=== PATIENT | male | born 1970 | race Caucasian/White ===

== ENCOUNTER 2021-01-19 14:22 | Emergency (ER) | payer SELFPAY ==
[2021-01-19 14:36] VITALS: BMI 28.3
[2021-01-19] MEDS ORDERED: BAMLANIVIMAB 700 MG in SODIUM CHLORIDE 250 ML IVPB ONE (14:55)
[2021-01-19] MEDS ORDERED: LORATADINE 10 MG TABLET PO ONE (16:22)
[2021-01-19] MEDS ORDERED: LORATADINE 10 MG TABLET ONE (16:30)
[2021-01-19 17:06] VITALS: TEMP 100.4
[2021-01-19] MEDS ORDERED: ACETAMINOPHEN 325 MG TABLET (FP) PO ONE (17:14)
[2021-01-19] MEDS ORDERED: ACETAMINOPHEN 325 MG TABLET (FP) ONE ×2 (17:17→18:12)
[2021-01-19 18:10] VITALS: BP 137/89; PULSE 96
== END 2021-01-19 18:31 | disposition home or self-care (01) ==
LOC: JER 14:22
PROC: 3E033GC Introduction of Other Therapeutic Substance into Peripheral Vein, Percutaneous Approach (ICD-10-PCS; principal; 2021-01-19)
DX: U07.1 COVID-19 (principal)
CPT/HCPCS: 71046-TC-FY; 99284-25; M0239; Q0239

== ENCOUNTER 2022-05-04 11:16 | Emergency (ER) | payer OTHER ==
[2022-05-04] MEDS ORDERED: SODIUM CHLORIDE 1,000 ML IV STA ×2 (11:24→12:09)
[2022-05-04 11:57] VITALS: BP 120/90; PULSE 98; TEMP 98.8; BMI 24.3
[2022-05-04 12:14] LABS: ALBUMIN 4.6 g/dl (3.4-5.0); CALCIUM 10.7 mg/dl (8.5-10); CREATININE 1.3 mg/dl (0.55-1.3); TOT PROT 8.1 g/dl (6.4-8.2)
[2022-05-04 12:20] LABS: HEMATOCRIT 47.7 % (35.4-49); HEMOGLOBIN 16.9 G/dL (11.7-16.9); MCH 33.1 pg (25.7-33.7); MCHC 35.4 g/dl (32.0-35.9); MEAN CELL VOLUME 93.8 fl (80-96); MEAN PLT VOLUME 9.1 fl (7.5-11.1); PLATELET COUNT 191.2 10^3/uL (134-434); RBC 5.09 10^6/uL (4.00-5.60); RDW 12.8 % (11.9-15.9); WHITE BLOOD COUNT 8.6 10^3/uL (4.0-10.8)
[2022-05-04] MEDS ORDERED: INSULIN REGULAR HUMAN 100 UNITS/ML *VIAL SQ ONE (12:20)
[2022-05-04] MEDS ORDERED: INSULIN REGULAR HUMAN 100 UNITS/ML *VIAL ONE (12:26)
[2022-05-04 13:09] LABS: PLATELET ESTIMATE ADEQUATE
[2022-05-04 14:05] LABS: VENOUS BASE EXCESS 2.4 mmol/L (-2-2); VENOUS O2 SATURATION 88.6 % (70-80); VENOUS PCO2 43.6 mmHg (38-52); VENOUS PH 7.416 (7.310-7.410)
== END 2022-05-04 14:21 | disposition home or self-care (01) ==
LOC: FER 11:16
PROC: 3E0337Z Introduction of Electrolytic and Water Balance Substance into Peripheral Vein, Percutaneous Approach (ICD-10-PCS; principal; 2022-05-04)
PROC: 3E0337Z Introduction of Electrolytic and Water Balance Substance into Peripheral Vein, Percutaneous Approach (ICD-10-PCS; 2022-05-04)
DX: R73.9 Hyperglycemia, unspecified (principal)
CPT/HCPCS: 36415; 71045-TC-FY; 80053; 81003; 81015; 82010; 82803; 82962; 85025; 99284-25

== ENCOUNTER 2022-12-14 07:43 | Observation (INO) | payer OTHER ==
[2022-12-14 08:59] LABS: HEMATOCRIT 39.8 % (35.4-49); HEMOGLOBIN 13.8 G/dL (11.7-16.9); MCH 32.1 pg (25.7-33.7); MCHC 34.6 g/dl (32.0-35.9); MEAN CELL VOLUME 92.9 fl (80-96); MEAN PLT VOLUME 9.4 fl (7.5-11.1); PLATELET COUNT 147.3 10^3/uL (134-434); RBC 4.28 10^6/uL (4.00-5.60); RDW 13.1 % (11.9-15.9); WHITE BLOOD COUNT 6.3 10^3/uL (4.0-10.8)
[2022-12-14 09:10] LABS: INR 1.07 (0.83-1.09); PROTHROMBIN TIME (PATIENT) 12.3 SEC (9.7-13.0)
[2022-12-14 09:20] LABS: ACTIVATED PTT 26.9 SECONDS (25.2-36.5)
[2022-12-14 09:35] LABS: CALCIUM 9.2 mg/dl (8.5-10)
[2022-12-14 09:37] LABS: EPITHELIAL CELLS RARE /hpf
[2022-12-14 09:38] LABS: URINE HYALINE CAST 0-1 /lpf
[2022-12-14 09:41] LABS: ALBUMIN 3.8 g/dl (3.4-5.0); BILIRUBIN,TOTAL 1.7 mg/dl (0.2-1); CREATININE 0.8 mg/dl (0.55-1.3); TOT PROT 6.9 g/dl (6.4-8.2)
[2022-12-14] MEDS ORDERED: SODIUM CHLORIDE 0.9% 1000 ML INFUS.BAG IV ONE (10:01)
[2022-12-14 10:05] LABS: VENOUS BASE EXCESS 0.1 mmol/L (-2-2); VENOUS O2 SATURATION 95.3 % (70-80); VENOUS PCO2 41.8 mmHg (38-52); VENOUS PH 7.395 (7.310-7.410)
[2022-12-14] MEDS ORDERED: NITROGLYCERIN SUBLINGUAL 1/200 0.3 MG BTL SL ONE (10:22)
[2022-12-14] MEDS ORDERED: NITROGLYCERIN SUBLINGUAL 1/150 0.4 MG TAB ONE (10:32)
[2022-12-14] MEDS ORDERED: NITROGLYCERIN SUBLINGUAL 1/150 0.4 MG TAB SL ONE (11:15)
[2022-12-14] MEDS ORDERED: INSULIN REGULAR HUMAN 100 UNITS/ML *VIAL IVPUSH ONE (11:27)
[2022-12-14] MEDS ORDERED: INSULIN REGULAR HUMAN 100 UNITS/ML *VIAL ONE (11:32)
[2022-12-14] MEDS ORDERED: INSULIN (LEVEMIR) 100 UNITS/ML UNITS SQ SCH (14:33)
[2022-12-14 15:53] VITALS: BMI 25.5
[2022-12-14] MEDS: ROSUVASTATIN CA 40 MG TABLET PO SCH ×2 (16:11→22:31)
[2022-12-14] MEDS: NIFEdipine E.R 60 MG TABLET PO SCH (16:11)
[2022-12-14] MEDS: ASPIRIN 81 MG CHEWABLE TABLETS PO SCH (16:11)
[2022-12-14] MEDS: ENOXAPARIN NA (PORCINE) 40 MG/0.4 ML DISP.SYRIN SQ SCH (16:11)
[2022-12-14] MEDS: INSULIN SLIDING SCALE (NOVOLOG) 1 VIAL SQ SCH ×2 (16:49→22:30)
[2022-12-14] MEDS: LOSARTAN 50MG/HCTZ 12.5MG 1 TAB PO SCH (18:25)
[2022-12-14] MEDS ORDERED: ACETAMINOPHEN 325 MG TABLET (FP) PO ONE (22:03)
[2022-12-14] MEDS: INSULIN (LEVEMIR) 100 UNITS/ML UNITS SQ SCH (22:29)
[2022-12-14 23:11] LABS: URINE BENZODIAZEPINES NEGATIVE (NEGATIVE)
[2022-12-14 23:12] LABS: OPIATES, URI NEGATIVE (NEGATIVE); PHENCYCLIDINE,URINE NEGATIVE (NEGATIVE); URINE BARBITURATES NEGATIVE (NEGATIVE)
[2022-12-14 23:14] LABS: COCAINE, UR NEGATIVE (NEGATIVE); METHADONE, UR NEGATIVE (NEGATIVE); URINE AMPHETAMINES NEGATIVE (NEGATIVE)
[2022-12-15] MEDS: INSULIN SLIDING SCALE (NOVOLOG) 1 VIAL SQ SCH (06:21)
[2022-12-15 08:29] LABS: ALBUMIN 3.9 g/dl (3.4-5.0); BILIRUBIN,TOTAL 1.3 mg/dl (0.2-1); CALCIUM 9.2 mg/dl (8.5-10); CREATININE 0.9 mg/dl (0.55-1.3); TOT PROT 7.1 g/dl (6.4-8.2)
[2022-12-15] MEDS: ASPIRIN 81 MG CHEWABLE TABLETS PO SCH (09:21)
[2022-12-15] MEDS: LOSARTAN 50MG/HCTZ 12.5MG 1 TAB PO SCH (09:21)
[2022-12-15] MEDS: NIFEdipine E.R 60 MG TABLET PO SCH (09:21)
[2022-12-15] MEDS: ENOXAPARIN NA (PORCINE) 40 MG/0.4 ML DISP.SYRIN SQ SCH (09:24)
[2022-12-15] MEDS: INSULIN (LEVEMIR) 100 UNITS/ML UNITS SQ SCH (09:24)
[2022-12-15] MEDS ORDERED: POLYETHYLENE GLYCOL (HEALTHYLAX) 3350 17 GM PACKET PO SCH (10:00)
[2022-12-15] MEDS ORDERED: PANTOPRAZOLE 40 MG TABLET PO SCH (10:00)
[2022-12-15 10:07] LABS: BASO % 0.9 % (0-2.0); EOS % 2.7 % (0-4.5); HEMATOCRIT 42.9 % (35.4-49); HEMOGLOBIN 14.5 GM/dL (11.7-16.9); LYMPH % 17.8 % (8-40); MCH 31.5 pg (25.7-33.7); MCHC 33.8 g/dl (32.0-35.9); MEAN CELL VOLUME 93.3 fl (80-96); MEAN PLT VOLUME 10.1 fl (7.5-11.1); MONO % 7.3 % (3.8-10.2); NEUT % 71.3 % (42.8-82.8); PLATELET COUNT 161 10^3/uL (134-434); WHITE BLOOD COUNT 6.8 K/mm3 (4.0-10.0)
[2022-12-15] MEDS ORDERED: INSULIN (LEVEMIR) 100 UNITS/ML UNITS SQ ONE (10:45)
[2022-12-15 10:53] VITALS: BP 128/91; PULSE 82; RESP 82; TEMP 98.4
[2022-12-15] MEDS ORDERED: INSULIN (LEVEMIR) 100 UNITS/ML UNITS SQ SCH (22:00)
== END 2022-12-15 13:21 | disposition home or self-care (01) ==
LOC: FER 07:43 → UNDOADMOB 10:57 → FM/S 10:57
PROC: 3E023GC Introduction of Other Therapeutic Substance into Muscle, Percutaneous Approach (ICD-10-PCS; principal; 2022-12-14)
PROC: 3E013VG Introduction of Insulin into Subcutaneous Tissue, Percutaneous Approach (ICD-10-PCS; 2022-12-14)
PROC: 3E033VG Introduction of Insulin into Peripheral Vein, Percutaneous Approach (ICD-10-PCS; 2022-12-14)
PROC: 3E0337Z Introduction of Electrolytic and Water Balance Substance into Peripheral Vein, Percutaneous Approach (ICD-10-PCS; 2022-12-14)
DX: I16.0 Hypertensive urgency (principal); E78.5 Hyperlipidemia, unspecified; E11.9 Type 2 diabetes mellitus without complications; Z91.190 Patient's noncompliance with other medical treatment and regimen due to financial hardship; F10.20 Alcohol dependence, uncomplicated
CPT/HCPCS: 0241U-QW; 36415; 70450-TC; 71046-TC-FY; 76705-TC; 80053; 80061; 80307; 81003; 81015; 82272; 82803; 82962; 83036; 83516; 83605; 84439; 84443; 84484; 85025; 85027; 85610; 85730; 86704; 86803; 86850; 86900; 86901; 87340; 87517; 93005; 96372; 99285-25; G0378

== ENCOUNTER 2023-03-26 10:05 | Emergency (ER) | payer OTHER ==
[2023-03-26 10:24] VITALS: TEMP 97.9; BMI 27.2
[2023-03-26] MEDS ORDERED: LOSARTAN 50MG/HCTZ 12.5MG 1 TAB PO ONE (10:50)
[2023-03-26] MEDS ORDERED: NIFEdipine E.R. 30 MG TABLET PO ONE ×2 (10:50→11:29)
[2023-03-26] MEDS ORDERED: CARVEDILOL 25 MG TABLET (FP) PO ONE (10:50)
[2023-03-26] MEDS ORDERED: CARVEDILOL 25 MG TABLET (FP) ONE (11:29)
[2023-03-26 11:59] LABS: BASO % 0.7 % (0-2.0); EOS % 0.5 % (0-4.5); HEMATOCRIT 39.1 % (35.4-49); HEMOGLOBIN 13.2 GM/dL (11.7-16.9); LYMPH % 14.9 % (8-40); MCHC 33.7 g/dl (32.0-35.9); MEAN PLT VOLUME 8.9 fl (7.5-11.1); MONO % 6.1 % (3.8-10.2); NEUT % 77.8 % (42.8-82.8); PLATELET COUNT 160 10^3/uL (134-434); RBC 4.54 M/mm3 (4.00-5.60); RDW 15.1 % (11.9-15.9); WHITE BLOOD COUNT 6.5 K/mm3 (4.0-10.0)
[2023-03-26 12:21] LABS: POTASSIUM 4.2 mmol/L (3.5-5.1)
[2023-03-26 12:25] LABS: BLOOD UREA NITROGEN 10.5 mg/dL (7-18); CALCIUM 8.9 mg/dL (8.5-10.1)
[2023-03-26 12:26] LABS: ALBUMIN 3.6 g/dl (3.4-5.0)
[2023-03-26 12:29] LABS: CREATININE 0.9 mg/dL (0.55-1.3)
[2023-03-26 12:30] LABS: BILIRUBIN,TOTAL 0.6 mg/dL (0.2-1); TOT PROT 7.4 g/dl (6.4-8.2)
[2023-03-26 13:36] VITALS: BP 177/100; PULSE 68; RESP 19
== END 2023-03-26 13:52 | disposition home or self-care (01) ==
LOC: JER 10:05
DX: I10 Essential (primary) hypertension (principal)
CPT/HCPCS: 36415; 80053; 82962; 84484; 85025; 93005; 93010; 99284-25

== ENCOUNTER 2023-07-19 07:17 | Inpatient (IN) | payer OTHER ==
[2023-07-19 07:27] VITALS: BMI 24.3
[2023-07-19] MEDS ORDERED: ACETAMINOPHEN 1000 MG/100 ML BAG IVPB ONE (07:43)
[2023-07-19] MEDS ORDERED: MAG HYDROX/AL HYDROX/SIMETH 30 ML UNIT-DOSE CUP PO ONE (07:43)
[2023-07-19] MEDS ORDERED: FAMOTIDINE 20 MG/50 ML IVPB 20 MG/50 ML MG IVPB ONE ×2 (07:47→07:49)
[2023-07-19] MEDS ORDERED: MAG HYDROX/AL HYDROX/SIMETH 30 ML UNIT-DOSE CUP ONE (07:49)
[2023-07-19] MEDS ORDERED: ACETAMINOPHEN INJECTION 100 ML IVPB ONE (07:49)
[2023-07-19] MEDS ORDERED: SODIUM CHLORIDE 0.9% 500 ML INFUS.BAG IV ONE (08:36)
[2023-07-19] MEDS ORDERED: PIPERACILLIN/TAZOB 3.375 GM 3.375 GM in DEXTROSE 5%-WATER - 50 ML IVPB ONE (08:36)
[2023-07-19 08:56] LABS: INR 0.98 (0.83-1.09); PROTHROMBIN TIME (PATIENT) 11.4 SEC (9.7-13.0)
[2023-07-19 08:59] LABS: ACTIVATED PTT 26.2 SECONDS (25.2-36.5)
[2023-07-19] MEDS ORDERED: PIPERACILLIN/TAZOBACTAM 3.375 GM VIAL IVPB ONE (08:59)
[2023-07-19 09:05] LABS: HEMOGLOBIN 12.4 G/dL (11.7-16.9); MCH 27.1 pg (25.7-33.7); MCHC 31.7 g/dl (32.0-35.9); MEAN CELL VOLUME 85.3 fl (80-96); MEAN PLT VOLUME 9.8 fl (7.5-11.1); PLATELET COUNT 163.4 10^3/uL (134-434); RBC 4.57 10^6/uL (4.00-5.60); RDW 15.2 % (11.9-15.9); WHITE BLOOD COUNT 9.3 10^3/uL (4.0-10.8)
[2023-07-19 09:06] LABS: ALBUMIN 4.4 g/dl (3.4-5.0); BLOOD UREA NITROGEN 9.3 mg/dl (7-18); CALCIUM 9.2 mg/dl (8.5-10.1); CREATININE 0.7 mg/dl (0.6-1.3); POTASSIUM 3.2 mmol/L (3.5-5.1); SGOT/AST 136.4 U/L (15-37); SGPT/ALT 139.6 U/L (7-52); TOT PROT 7.9 g/dl (6.4-8.2)
[2023-07-19 09:18] LABS: PLATELET ESTIMATE ADEQUATE
[2023-07-19] MEDS ORDERED: KCL 10 MEQ IVPB 10 MEQ/100 ML INFUS.BAG IVPB SCH (10:00)
[2023-07-19 10:22] LABS: BILIRUBIN,TOTAL 0.6 mg/dL (0.2-1)
[2023-07-19] MEDS ORDERED: KCL 10 MEQ IVPB 10 MEQ/100 ML INFUS.BAG IVPB ONE (11:09)
[2023-07-19] MEDS ORDERED: ACETAMINOPHEN 325 MG TABLET (FP) PO ONE (17:57)
[2023-07-19] MEDS ORDERED: ACETAMINOPHEN 325 MG TABLET (FP) ONE (18:00)
[2023-07-19] MEDS ORDERED: DOCUSATE SODIUM 100 MG CAPSULE (FP) PO PRN (21:48)
[2023-07-19] MEDS: INSULIN SLIDING SCALE (NOVOLOG) 1 VIAL SQ SCH (23:45)
[2023-07-19] MEDS ORDERED: PIPERACILLIN/TAZOB 4.5 GM 4.5 GM in DEXTROSE 5%-WATER 100 ML IVPB ONE (23:54)
[2023-07-20] MEDS: INSULIN SLIDING SCALE (NOVOLOG) 1 VIAL SQ SCH ×4 (06:44→22:09)
[2023-07-20] MEDS ORDERED: SODIUM CHLORIDE 1,000 ML IV SCH ×2 (08:00→18:00)
[2023-07-20] MEDS ORDERED: KETOROLAC TROMETHAMINE 30 MG/1 ML VIAL IVPUSH PRN ×2 (08:01→19:05)
[2023-07-20] MEDS ORDERED: LORazepam 2 MG/ML SDV VIAL IVPUSH PRN ×2 (08:04→19:05)
[2023-07-20] MEDS: PIPERACILLIN/TAZOB 3.375 GM 3.375 GM in DEXTROSE 5%-WATER - 50 ML IVPB SCH ×4 (08:42→22:09)
[2023-07-20] MEDS ORDERED: metoPROLOL SUCCINATE 25 MG TAB.SR.24H (FP) PO SCH (10:00)
[2023-07-20] MEDS ORDERED: NIFEdipine E.R. 30 MG TABLET PO SCH (10:00)
[2023-07-20 11:04] LABS: EOS % 4.5 % (0-4.5); HEMATOCRIT 36.2 % (35.4-49); HEMOGLOBIN 11.6 GM/dL (11.7-16.9); LYMPH % 20.3 % (8-40); MCH 26.4 pg (25.7-33.7); MEAN CELL VOLUME 82.5 fl (80-96); MEAN PLT VOLUME 9.3 fl (7.5-11.1); NEUT % 65.2 % (42.8-82.8); PLATELET COUNT 190 10^3/uL (134-434); RBC 4.39 M/mm3 (4.00-5.60); RDW 14.8 % (11.9-15.9); WHITE BLOOD COUNT 6.4 K/mm3 (4.0-10.0)
[2023-07-20 11:28] LABS: POTASSIUM 3.9 mmol/L (3.5-5.1)
[2023-07-20 11:44] LABS: CALCIUM 8.8 mg/dL (8.5-10.1)
[2023-07-20 11:45] LABS: ALBUMIN 3.6 g/dl (3.4-5.0); BLOOD UREA NITROGEN 7.2 mg/dL (7-18)
[2023-07-20 11:48] LABS: CREATININE 0.8 mg/dL (0.55-1.3); PHOSPHOROUS 1.7 mg/dL (2.5-4.9)
[2023-07-20 11:50] LABS: BILIRUBIN,TOTAL 0.9 mg/dL (0.2-1); TOT PROT 7.4 g/dl (6.4-8.2)
[2023-07-20] MEDS ORDERED: BUPIVACAINE HCL/PF 0.25% (2.5MG/ML) 10 ML VIAL IJ ONE ×3 (16:24→17:18)
[2023-07-20] MEDS ORDERED: SUCCINYLCHOLINE CHLORIDE 200 MG/10 ML VIAL ONE (16:46)
[2023-07-20] MEDS ORDERED: ROCURONIUM BROMIDE 50 MG/5 ML SYRINGE ONE (16:48)
[2023-07-20] MEDS ORDERED: MIDAZOLAM HCL 2 MG/2 ML SINGLE DOSE VIAL ONE (16:49)
[2023-07-20] MEDS ORDERED: SUCCINYLCHOLINE CHLORIDE 200 MG/10 ML SYRINGE ONE (16:50)
[2023-07-20] MEDS ORDERED: cefOXitin SODIUM 2 GM VIAL (RESTRICTED TO ID) IVPB ONE ×2 (17:04→17:10)
[2023-07-20] MEDS ORDERED: SUGAMMADEX SODIUM 200 MG/2 ML VIAL ONE (17:39)
[2023-07-20] MEDS ORDERED: ONDANSETRON 4 MG/2 ML VIAL IVPUSH PRN ×2 (17:58→19:05)
[2023-07-20] MEDS ORDERED: oxyCODONE HCL 5 MG TABLET PO PRN ×3 (17:58→19:05)
[2023-07-20] MEDS ORDERED: LACTATED RINGERS SOLUTION 1,000 ML IV SCH (18:00)
[2023-07-20] MEDS ORDERED: FAMOTIDINE 20 MG/50 ML IVPB 20 MG/50 ML MG IVPB ONE (19:05)
[2023-07-20] MEDS: SODIUM CHLORIDE 1,000 ML IV SCH (19:51)
[2023-07-21] MEDS: PIPERACILLIN/TAZOB 3.375 GM 3.375 GM in DEXTROSE 5%-WATER - 50 ML IVPB SCH (02:04)
[2023-07-21] MEDS: oxyCODONE HCL 5 MG TABLET PO PRN ×3 (02:04→17:57)
[2023-07-21] MEDS: INSULIN SLIDING SCALE (NOVOLOG) 1 VIAL SQ SCH ×4 (03:15→21:56)
[2023-07-21 08:07] VITALS: RESP 20
[2023-07-21] MEDS ORDERED: KETOROLAC TROMETHAMINE 30 MG/1 ML VIAL IVPUSH PRN (08:27)
[2023-07-21] MEDS ORDERED: oxyCODONE HCL 5 MG TABLET PO PRN (08:27)
[2023-07-21 08:49] LABS: BASO % 0.3 % (0-2.0); EOS % 0.2 % (0-4.5); HEMATOCRIT 37.4 % (35.4-49); HEMOGLOBIN 11.8 GM/dL (11.7-16.9); LYMPH % 10.6 % (8-40); MCH 26.4 pg (25.7-33.7); MCHC 31.4 g/dl (32.0-35.9); MEAN CELL VOLUME 84.1 fl (80-96); MEAN PLT VOLUME 9.3 fl (7.5-11.1); NEUT % 81.9 % (42.8-82.8); PLATELET COUNT 206 10^3/uL (134-434); RBC 4.45 M/mm3 (4.00-5.60); RDW 15.2 % (11.9-15.9); WHITE BLOOD COUNT 10.8 K/mm3 (4.0-10.0)
[2023-07-21 09:06] LABS: POTASSIUM 3.6 mmol/L (3.5-5.1)
[2023-07-21 09:13] LABS: CALCIUM 9.1 mg/dL (8.5-10.1)
[2023-07-21 09:14] LABS: ALBUMIN 3.2 g/dl (3.4-5.0); BLOOD UREA NITROGEN 9.4 mg/dL (7-18); MAGNESIUM 1.9 mg/dL (1.8-2.4); PHOSPHOROUS 3.1 mg/dL (2.5-4.9)
[2023-07-21 09:15] LABS: BILIRUBIN,TOTAL 0.8 mg/dL (0.2-1); TOT PROT 7.4 g/dl (6.4-8.2)
[2023-07-21 09:17] LABS: CREATININE 0.8 mg/dL (0.55-1.3)
[2023-07-21] MEDS: LOSARTAN POTASSIUM 50 MG TABLET PO SCH (10:12)
[2023-07-21] MEDS: HYDROCHLOROTHIAZIDE 12.5 MG CAPSULE (FP) PO SCH (10:13)
[2023-07-21] MEDS: metoPROLOL SUCCINATE 25 MG TAB.SR.24H (FP) PO SCH (10:13)
[2023-07-21] MEDS: NIFEdipine E.R. 30 MG TABLET PO SCH (10:13)
[2023-07-21] MEDS: ACETAMINOPHEN 325 MG TABLET (FP) PO PRN (18:27)
[2023-07-21] MEDS ORDERED: INSULIN (LEVEMIR) 100 UNITS/ML UNITS SQ SCH (22:00)
[2023-07-22] MEDS: SODIUM CHLORIDE 1,000 ML IV SCH (02:07)
[2023-07-22] MEDS: ACETAMINOPHEN 325 MG TABLET (FP) PO PRN (05:50)
[2023-07-22] MEDS: INSULIN SLIDING SCALE (NOVOLOG) 1 VIAL SQ SCH ×2 (06:22→11:53)
[2023-07-22] MEDS: LOSARTAN POTASSIUM 50 MG TABLET PO SCH (09:48)
[2023-07-22] MEDS: metoPROLOL SUCCINATE 25 MG TAB.SR.24H (FP) PO SCH (09:48)
[2023-07-22] MEDS: NIFEdipine E.R. 30 MG TABLET PO SCH (09:48)
[2023-07-22] MEDS: HYDROCHLOROTHIAZIDE 12.5 MG CAPSULE (FP) PO SCH (09:48)
[2023-07-22 09:52] VITALS: BP 135/96; PULSE 80; TEMP 98.1
[2023-07-22 09:55] LABS: BASO % 0.5 % (0-2.0); EOS % 1.3 % (0-4.5); HEMATOCRIT 37.8 % (35.4-49); HEMOGLOBIN 11.9 GM/dL (11.7-16.9); LYMPH % 13.5 % (8-40); MCH 26.3 pg (25.7-33.7); MCHC 31.4 g/dl (32.0-35.9); MEAN CELL VOLUME 83.7 fl (80-96); MEAN PLT VOLUME 9.8 fl (7.5-11.1); MONO % 7.4 % (3.8-10.2); NEUT % 77.3 % (42.8-82.8); PLATELET COUNT 232 10^3/uL (134-434); RBC 4.52 M/mm3 (4.00-5.60); WHITE BLOOD COUNT 9.9 K/mm3 (4.0-10.0)
[2023-07-22] MEDS: oxyCODONE HCL 5 MG TABLET PO PRN (10:10)
[2023-07-22 12:01] LABS: ALBUMIN 3.3 g/dl (3.4-5.0); BILIRUBIN,TOTAL 0.8 mg/dL (0.2-1); BLOOD UREA NITROGEN 11.5 mg/dL (7-18); CALCIUM 9.3 mg/dL (8.5-10.1); CREATININE 0.9 mg/dL (0.55-1.3); MAGNESIUM 1.8 mg/dL (1.8-2.4); PHOSPHOROUS 2.7 mg/dL (2.5-4.9); POTASSIUM 3.5 mmol/L (3.5-5.1); TOT PROT 7.4 g/dl (6.4-8.2)
== END 2023-07-22 12:01 | disposition home or self-care (01) | DRG 419 ==
LOC: FER 07:17 → INTOOBSV 21:00 → UNDOADMOB 21:00 → J5S 21:00 → JASUSAT 07-20 14:06 → SUATTDRO 07-20 14:06 → J5S 07-20 14:17 → JASUSAT 07-21 11:54
PROVIDERS: ADMIT Internal Medicine; ATTEND Internal Medicine
PROC: 0FT44ZZ Resection of Gallbladder, Percutaneous Endoscopic Approach (ICD-10-PCS; principal; 2023-07-20 14:00)
DX: K80.00 Calculus of gallbladder with acute cholecystitis without obstruction (principal); I10 Essential (primary) hypertension; E11.9 Type 2 diabetes mellitus without complications
CPT/HCPCS: 0241U-QW; 36415; 76705-TC; 80048; 80053; 82550; 82962; 83690; 83735; 84100; 84484; 85025; 85027; 85610; 85730; 86850; 86900; 86901; 88304-TC; 93005; 94760; 99285-25

== ENCOUNTER 2023-09-27 17:31 | Inpatient (IN) | payer OTHER ==
[2023-09-27] MEDS ORDERED: SODIUM CHLORIDE 0.9% 1000 ML INFUS.BAG IV ONE (18:04)
[2023-09-27] MEDS ORDERED: ACETAMINOPHEN 1000 MG/100 ML BAG IVPB ONE (18:04)
[2023-09-27] MEDS ORDERED: ACETAMINOPHEN INJECTION 100 ML IVPB ONE (18:17)
[2023-09-27 18:24] LABS: HEMATOCRIT 34.7 % (35.4-49); HEMOGLOBIN 11.3 G/dL (11.7-16.9); MCHC 32.4 g/dl (32.0-35.9); MEAN CELL VOLUME 83.2 fl (80-96); MEAN PLT VOLUME 9.6 fl (7.5-11.1); RBC 4.17 10^6/uL (4.00-5.60); WHITE BLOOD COUNT 8.4 10^3/uL (4.0-10.8)
[2023-09-27 18:36] LABS: INR 1.05 (0.83-1.09); PROTHROMBIN TIME (PATIENT) 12.2 SEC (9.7-13.0)
[2023-09-27 18:38] LABS: PLATELET ESTIMATE ADEQUATE
[2023-09-27 18:46] LABS: ALBUMIN 4.1 g/dl (3.4-5.0); BILIRUBIN,TOTAL 0.6 mg/dl (0.2-1); CALCIUM 9.6 mg/dl (8.5-10.1); CREATININE 0.9 mg/dl (0.6-1.3); POTASSIUM 3.7 mmol/L (3.5-5.1)
[2023-09-27] MEDS ORDERED: SODIUM CHLORIDE 1,000 ML IV STA (19:40)
[2023-09-27] MEDS ORDERED: AMPICILLIN NA/SULBACTAM NA 1.5 GM in SODIUM CHLORIDE 100 ML IVPB ONE (21:28)
[2023-09-27] MEDS ORDERED: AMPICILLIN NA/SULBACTAM NA 1.5 GM VIAL ONE (21:33)
[2023-09-27] MEDS ORDERED: KETOROLAC TROMETHAMINE 30 MG/1 ML VIAL IVPUSH ONE (22:31)
[2023-09-27] MEDS ORDERED: KETOROLAC TROMETHAMINE 30 MG/1 ML VIAL ONE (22:32)
[2023-09-27] MEDS ORDERED: DOCUSATE SODIUM 100 MG CAPSULE (FP) PO PRN (22:36)
[2023-09-27] MEDS ORDERED: INSULIN (NOVOLOG) ASPART 100 UNITS/ML 10ML VIAL ONE (22:54)
[2023-09-27] MEDS: INSULIN ASPART SLIDING SCALE (NOVOLOG) 1 VIAL SQ SCH (22:55)
[2023-09-27 23:43] VITALS: BMI 25.9
[2023-09-28] MEDS: ACETAMINOPHEN 1000 MG/100 ML BAG IVPB PRN ×2 (02:22→13:45)
[2023-09-28] MEDS: AMPICILLIN NA/SULBACTAM NA 1.5 GM in SODIUM CHLORIDE 100 ML IVPB SCH ×4 (02:49→21:17)
[2023-09-28] MEDS: INSULIN ASPART SLIDING SCALE (NOVOLOG) 1 VIAL SQ SCH ×5 (03:02→22:45)
[2023-09-28] MEDS: MELATONIN 5 MG TABLETS PO PRN ×2 (03:04→21:17)
[2023-09-28 08:36] LABS: CALCIUM 8.5 mg/dl (8.5-10.1); CREATININE 0.8 mg/dl (0.6-1.3); MAGNESIUM 1.7 mg/dL (1.8-2.4); PHOSPHOROUS 1.9 (2.5-4.9); POTASSIUM 3.5 mmol/L (3.5-5.1)
[2023-09-28] MEDS: LOSARTAN POTASSIUM 50 MG TABLET PO SCH (09:26)
[2023-09-28] MEDS: HYDROCHLOROTHIAZIDE 12.5 MG CAPSULE (FP) PO SCH (09:26)
[2023-09-28] MEDS: NIFEdipine E.R. 30 MG TABLET PO SCH (09:27)
[2023-09-28] MEDS: metoPROLOL SUCCINATE 25 MG TAB.SR.24H (FP) PO SCH (09:27)
[2023-09-28] MEDS: LACTATED RINGERS SOLUTION 1,000 ML/1,000 ML INFUS.BAG IV SCH (09:28)
[2023-09-28 09:34] LABS: BASO % 0.7 % (0-2.0); EOS % 4.4 % (0-4.5); HEMATOCRIT 34.3 % (35.4-49); LYMPH % 17.2 % (8-40); MCH 26.1 pg (25.7-33.7); MCHC 32.1 g/dl (32.0-35.9); MEAN CELL VOLUME 81.3 fl (80-96); MEAN PLT VOLUME 9.3 fl (7.5-11.1); MONO % 10.8 % (3.8-10.2); NEUT % 66.9 % (42.8-82.8); PLATELET COUNT 185 10^3/uL (134-434); RBC 4.22 M/mm3 (4.00-5.60); RDW 18.2 % (11.9-15.9)
[2023-09-28] MEDS ORDERED: MAGNESIUM SULF 50% (8.12 MEQ/2 ML-1 GM VIAL) IVPB ONE (09:34)
[2023-09-28] MEDS ORDERED: BUPIVACAINE HCL/PF 0.25% (2.5MG/ML) 10 ML VIAL ONE (09:53)
[2023-09-28] MEDS ORDERED: BUPIVACAINE HCL/PF 0.5% (5MG/ML) 10 ML VIAL ONE ×2 (09:53→12:08)
[2023-09-28] MEDS ORDERED: MAGNESIUM 1GM/D5W - 1 GM/100 ML IVPB IVPB ONE (10:00)
[2023-09-28] MEDS ORDERED: POTASSIUM PHOSPHATE 15 MM in SODIUM CHLORIDE 250 ML IVPB ONE (11:00)
[2023-09-28] MEDS ORDERED: ONDANSETRON 4 MG/2 ML VIAL IVPUSH PRN (12:02)
[2023-09-28] MEDS ORDERED: MIDAZOLAM HCL 2 MG/2 ML SINGLE DOSE VIAL ONE ×2 (12:08→12:26)
[2023-09-28] MEDS ORDERED: LACTATED RINGERS SOLUTION 1,000 ML IV SCH (12:15)
[2023-09-28] MEDS ORDERED: DEXAMETHASONE SOD PHOSPHATE 4 MG/1 ML VIAL ONE (12:26)
[2023-09-28] MEDS ORDERED: ONDANSETRON 4 MG/2 ML VIAL ONE (12:26)
[2023-09-28] MEDS ORDERED: PROPOFOL 20 ML ONE ×2 (12:34→12:39)
[2023-09-28] MEDS ORDERED: ACETAMINOPHEN INJECTION 100 ML IVPB ONE (13:29)
[2023-09-28] MEDS: oxyCODONE HCL 5 MG TABLET PO PRN ×2 (17:01→21:16)
[2023-09-28] MEDS: ACETAMINOPHEN 325 MG TABLET (FP) PO PRN (21:15)
[2023-09-29] MEDS: oxyCODONE HCL 5 MG TABLET PO PRN ×2 (03:06→21:41)
[2023-09-29] MEDS: ACETAMINOPHEN 325 MG TABLET (FP) PO PRN (03:07)
[2023-09-29] MEDS: AMPICILLIN NA/SULBACTAM NA 1.5 GM in SODIUM CHLORIDE 100 ML IVPB SCH ×4 (03:08→21:42)
[2023-09-29] MEDS: INSULIN ASPART SLIDING SCALE (NOVOLOG) 1 VIAL SQ SCH ×6 (03:11→22:28)
[2023-09-29 08:35] LABS: HEMOGLOBIN 11.5 G/dL (11.7-16.9); MCH 27.1 pg (25.7-33.7); MCHC 31.9 g/dl (32.0-35.9); MEAN PLT VOLUME 10.2 fl (7.5-11.1); RBC 4.23 10^6/uL (4.00-5.60); RDW 17.4 % (11.9-15.9); WHITE BLOOD COUNT 12.1 10^3/uL (4.0-10.8)
[2023-09-29 08:47] LABS: CALCIUM 9.1 mg/dl (8.5-10.1); CREATININE 0.8 mg/dl (0.6-1.3); POTASSIUM 3.7 mmol/L (3.5-5.1)
[2023-09-29] MEDS: metoPROLOL SUCCINATE 25 MG TAB.SR.24H (FP) PO SCH (10:01)
[2023-09-29] MEDS: NIFEdipine E.R. 30 MG TABLET PO SCH (10:01)
[2023-09-29] MEDS: LOSARTAN POTASSIUM 50 MG TABLET PO SCH (10:01)
[2023-09-29] MEDS: HYDROCHLOROTHIAZIDE 12.5 MG CAPSULE (FP) PO SCH (10:02)
[2023-09-29] MEDS: LACTATED RINGERS SOLUTION 1,000 ML/1,000 ML INFUS.BAG IV SCH (10:02)
[2023-09-29] MEDS: MELATONIN 5 MG TABLETS PO PRN (21:41)
[2023-09-30] MEDS: AMPICILLIN NA/SULBACTAM NA 1.5 GM in SODIUM CHLORIDE 100 ML IVPB SCH ×2 (03:10→09:50)
[2023-09-30] MEDS: INSULIN ASPART SLIDING SCALE (NOVOLOG) 1 VIAL SQ SCH ×2 (03:11→06:53)
[2023-09-30 08:07] LABS: HEMATOCRIT 35.3 % (35.4-49); HEMOGLOBIN 11.3 G/dL (11.7-16.9); MCH 26.8 pg (25.7-33.7); MCHC 31.9 g/dl (32.0-35.9); MEAN PLT VOLUME 10.4 fl (7.5-11.1); PLATELET COUNT 188.3 10^3/uL (134-434); WHITE BLOOD COUNT 6.7 10^3/uL (4.0-10.8)
[2023-09-30 09:00] LABS: CALCIUM 8.8 mg/dl (8.5-10.1); CREATININE 0.9 mg/dl (0.6-1.3); POTASSIUM 3.6 mmol/L (3.5-5.1)
[2023-09-30 09:07] VITALS: BP 140/79; PULSE 68; RESP 18; TEMP 98.1
[2023-09-30] MEDS: HYDROCHLOROTHIAZIDE 12.5 MG CAPSULE (FP) PO SCH (09:50)
[2023-09-30] MEDS: metoPROLOL SUCCINATE 25 MG TAB.SR.24H (FP) PO SCH (09:50)
[2023-09-30] MEDS: NIFEdipine E.R. 30 MG TABLET PO SCH (09:50)
[2023-09-30] MEDS: LOSARTAN POTASSIUM 50 MG TABLET PO SCH (09:50)
[2023-09-30] MEDS ORDERED: ENOXAPARIN NA (PORCINE) 40 MG/0.4 ML DISP.SYRIN SQ SCH (10:00)
== END 2023-09-30 11:28 | disposition home or self-care (01) | DRG 223 ==
LOC: FER 17:31 → FM/S 22:59
PROVIDERS: ADMIT Internal Medicine; ATTEND Internal Medicine
PROC: 0D9P0ZZ Drainage of Rectum, Open Approach (ICD-10-PCS; principal; 2023-09-28 12:34)
DX: K61.1 Rectal abscess (principal); E11.65 Type 2 diabetes mellitus with hyperglycemia; I10 Essential (primary) hypertension; K64.4 Residual hemorrhoidal skin tags; F10.90 Alcohol use, unspecified, uncomplicated
CPT/HCPCS: 0241U-QW; 36415; 71045-TC-FY; 74177-TC; 80048; 80053; 82010; 82962; 83735; 84100; 85025; 85027; 85610; 85730; 86850; 86900; 86901; 87070; 87186; 87205; 93005; 94760; 99285-25; Q9967

== ENCOUNTER 2023-10-30 10:15 | Inpatient (IN) | payer OTHER ==
[2023-10-30 11:11] LABS: HEMOGLOBIN 13.1 G/dL (11.7-16.9); MCH 26.6 pg (25.7-33.7); MCHC 31.9 g/dl (32.0-35.9); MEAN CELL VOLUME 83.3 fl (80-96); MEAN PLT VOLUME 9.6 fl (7.5-11.1); PLATELET COUNT 122.2 10^3/uL (134-434); RBC 4.92 10^6/uL (4.00-5.60); RDW 16.8 % (11.9-15.9); WHITE BLOOD COUNT 6.3 10^3/uL (4.0-10.8)
[2023-10-30 11:16] LABS: ALBUMIN 4.4 g/dl (3.4-5.0); BILIRUBIN,TOTAL 1.7 mg/dl (0.2-1); CALCIUM 9.2 mg/dl (8.5-10.1); CREATININE 1.5 mg/dl (0.6-1.3); TOT PROT 7.8 g/dl (6.4-8.2)
[2023-10-30 11:37] LABS: POTASSIUM 2.8 mmol/L (3.5-5.1)
[2023-10-30] MEDS ORDERED: KCL 10 MEQ IVPB 10 MEQ/100 ML INFUS.BAG IVPB SCH ×3 (11:45→14:45)
[2023-10-30] MEDS ORDERED: KCL 10 MEQ IVPB 10 MEQ/100 ML INFUS.BAG IVPB ONE ×2 (12:18→13:45)
[2023-10-30] MEDS: SODIUM CHLORIDE 1,000 ML IV SCH (12:27)
[2023-10-30 12:32] LABS: PLATELET ESTIMATE ADEQUATE
[2023-10-30] MEDS ORDERED: POTASSIUM CHLORIDE ORAL LIQUID 20 MEQ/15 ML PO ONE (14:45)
[2023-10-30] MEDS ORDERED: POTASSIUM CHLORIDE ORAL LIQUID 20 MEQ/15 ML ONE (14:48)
[2023-10-30 15:10] LABS: VENOUS PCO2 48.9 mmHg (38-52); VENOUS PH 7.394 (7.310-7.410)
[2023-10-30] MEDS ORDERED: ASPIRIN 81 MG CHEWABLE TABLETS PO ONE (15:14)
[2023-10-30] MEDS ORDERED: ASPIRIN 81 MG CHEWABLE TABLETS ONE (16:22)
[2023-10-30 18:55] VITALS: BMI 25.0
[2023-10-30] MEDS ORDERED: MAGNESIUM SULF 50% (8.12 MEQ/2 ML-1 GM VIAL) IVPB ONE (21:39)
[2023-10-30] MEDS: INSULIN ASPART SLIDING SCALE (NOVOLOG) 1 VIAL SQ SCH (22:14)
[2023-10-31 02:11] VITALS: RESP 18
[2023-10-31] MEDS: INSULIN ASPART SLIDING SCALE (NOVOLOG) 1 VIAL SQ SCH ×3 (06:37→16:30)
[2023-10-31] MEDS ORDERED: ALBUTEROL SO4 HFA INHALER IH PRN (09:28)
[2023-10-31 09:56] LABS: BASO % 0.8 % (0-2.0); EOS % 2.8 % (0-4.5); HEMATOCRIT 34.8 % (35.4-49); HEMOGLOBIN 11.2 GM/dL (11.7-16.9); LYMPH % 20.5 % (8-40); MCH 26.6 pg (25.7-33.7); MCHC 32.1 g/dl (32.0-35.9); MEAN PLT VOLUME 8.7 fl (7.5-11.1); MONO % 9.4 % (3.8-10.2); NEUT % 66.5 % (42.8-82.8); PLATELET COUNT 114 10^3/uL (134-434); RDW 18.1 % (11.9-15.9); WHITE BLOOD COUNT 5.6 K/mm3 (4.0-10.0)
[2023-10-31] MEDS: SODIUM CHLORIDE 1,000 ML IV SCH (09:58)
[2023-10-31] MEDS ORDERED: BUDESONIDE/FORMETEROL FUMARATE 160/4.5 mcg INHALER IH SCH (10:00)
[2023-10-31] MEDS ORDERED: metoPROLOL SUCCINATE 25 MG TAB.SR.24H (FP) PO SCH (10:00)
[2023-10-31] MEDS ORDERED: MAGNESIUM SULF 50% (8.12 MEQ/2 ML-1 GM VIAL) IVPB ONE (12:00)
[2023-10-31] MEDS ORDERED: MAGNESIUM 1GM/D5W - 1 GM/100 ML IVPB IVPB ONE (12:15)
[2023-10-31 14:59] VITALS: BP 149/88; PULSE 78; TEMP 98.3
== END 2023-10-31 16:31 | disposition home or self-care (01) | DRG 137 ==
LOC: FER 10:15 → FM/S 15:42
PROVIDERS: ADMIT Internal Medicine
DX: U07.1 COVID-19 (principal); I24.89 Other forms of acute ischemic heart disease; E11.9 Type 2 diabetes mellitus without complications; E87.6 Hypokalemia; R06.00 Dyspnea, unspecified; R74.01 Elevation of levels of liver transaminase levels
CPT/HCPCS: 0241U-QW; 36415; 71046-TC-FY; 76775-TC; 80053; 80061; 82010; 82803; 82947; 82962; 83036; 83735; 84132; 84443; 84484; 85025; 85027; 86140; 93005; 99285-25

== ENCOUNTER 2023-12-27 08:02 | Emergency (ER) | payer OTHER ==
[2023-12-27 08:13] VITALS: TEMP 97.9; BMI 25.0
[2023-12-27] MEDS ORDERED: ACETAMINOPHEN 325 MG TABLET (FP) ONE (08:44)
[2023-12-27] MEDS ORDERED: KETOROLAC TROMETHAMINE 30 MG/1 ML VIAL ONE (08:44)
[2023-12-27] MEDS: ACETAMINOPHEN 325 MG TABLET (FP) PO ONE (08:50)
[2023-12-27] MEDS: KETOROLAC TROMETHAMINE 30 MG/1 ML VIAL IM ONE (08:51)
[2023-12-27 09:27] VITALS: BP 161/90; PULSE 64; RESP 16
[2023-12-27 09:40] LABS: EPITHELIAL CELLS 0-5 /hpf
== END 2023-12-27 09:40 | disposition home or self-care (01) ==
LOC: FER 08:02
PROC: 3E0233Z Introduction of Anti-inflammatory into Muscle, Percutaneous Approach (ICD-10-PCS; principal; 2023-12-27)
DX: M54.50 Low back pain, unspecified (principal); R10.9 Unspecified abdominal pain; S39.012A Strain of muscle, fascia and tendon of lower back, initial encounter; I10 Essential (primary) hypertension; X50.1XXA Overexertion from prolonged static or awkward postures, initial encounter
CPT/HCPCS: 81003; 81015; 87086; 96372; 99284-25

== ENCOUNTER 2024-06-25 10:18 | Inpatient (IN) | payer OTHER ==
[2024-06-25 12:22] VITALS: BMI 27.2
[2024-06-25] MEDS ORDERED: BENZOCAINE/MENTHOL (CHLORASEPTIC ) LOZENGE MM PRN (13:55)
[2024-06-25] MEDS ORDERED: LOPERAMIDE HCL 2 MG CAPSULE PO PRN (13:55)
[2024-06-25] MEDS ORDERED: guaiFENesin 600 MG TABLET.ER (FP) PO PRN (13:55)
[2024-06-25] MEDS ORDERED: BENZONATATE 200 MG CAPSULE PO PRN (13:55)
[2024-06-25] MEDS ORDERED: INSULIN (NOVOLOG) ASPART 100 UNITS/ML 10ML VIAL ONE (14:22)
[2024-06-25] MEDS: INSULIN ASPART SLIDING SCALE (NOVOLOG) 1 VIAL SQ SCH (14:24)
[2024-06-25] MEDS ORDERED: amLODIPine BESYLATE 5 MG TABLET (FP) ONE (15:00)
[2024-06-25] MEDS: amLODIPine BESYLATE 10 MG TABLET (FP) PO SCH (15:03)
[2024-06-25] MEDS ORDERED: IBUPROFEN 600 MG TABLET (FP) PO ONE (15:06)
[2024-06-25] MEDS: IBUPROFEN 400 MG TABLET (FP) PO PRN (15:07)
[2024-06-25] MEDS: ACAMPROSATE CALCIUM 333 MG TABLET.DR PO SCH (21:31)
[2024-06-25] MEDS: MIRTAZAPINE 15 MG TABLET (FP) PO SCH (21:31)
[2024-06-25] MEDS: THIAMINE 100 MG TABLET PO SCH (21:36)
[2024-06-25] MEDS: MELATONIN 5 MG TABLETS PO SCH (21:36)
[2024-06-25] MEDS: IBUPROFEN 600 MG TABLET (FP) PO PRN (21:37)
[2024-06-25 22:13] LABS: EPI CELLS 3 /uL (0-25.1); HYALINE CASTS 2 /uL (0-3.1); PH,URINE 5.5 (5.0-8.0); URINE APPEARANCE TURBID; URINE BACTERIA 5 /uL (0-1359); URINE BILIRUBIN NEGATIVE (NEGATIVE); URINE COLOR YELLOW; URINE GLUCOSE (UA) 3+ (NEGATIVE); URINE KETONE TRACE (NEGATIVE); URINE LEUK ESTERASE NEGATIVE (NEGATIVE); URINE NITRITE NEGATIVE (NEGATIVE); URINE PROTEIN 1+ (NEGATIVE); URINE RBC 10 /uL (0-23.9); URINE UROBILINOGEN 0.2 mg/dL (0.2-1.0); URINE WBC 11 /uL (0-25.8)
[2024-06-26] MEDS: EMPAGLIFLOZIN (JARDIANCE) 25 MG TABLET PO SCH (07:02)
[2024-06-26] MEDS: LOSARTAN POTASSIUM 50 MG TABLET PO SCH (09:23)
[2024-06-26] MEDS: PANTOPRAZOLE 40 MG TABLET PO SCH (09:23)
[2024-06-26] MEDS: metoPROLOL SUCCINATE 25 MG TAB.SR.24H (FP) PO SCH (09:23)
[2024-06-26] MEDS: HYDROCHLOROTHIAZIDE 25 MG TABLET (FP) PO SCH (09:23)
[2024-06-26] MEDS: PRENATAL VITAMINS W/ FOLIC ACID TABLET (FP) PO SCH (09:23)
[2024-06-26] MEDS: ACETAMINOPHEN 325 MG TABLET (FP) PO PRN (09:25)
[2024-06-26] MEDS ORDERED: PATIENT'S OWN MEDICATION (NON-FORMULARY) (Losartan/Hydrochlorothiazide [Hyzaar 100-25 Tabl PO SCH (10:00)
[2024-06-26 11:36] LABS: POTASSIUM 3.6 mmol/L (3.5-5.1)
[2024-06-26 11:38] LABS: CALCIUM 8.9 mg/dL (8.5-10.1)
[2024-06-26 11:39] LABS: BLOOD UREA NITROGEN 9.1 mg/dL (7-18)
[2024-06-26 11:42] LABS: CREATININE 1.1 mg/dL (0.55-1.3)
[2024-06-26 11:43] LABS: HEMATOCRIT 31.3 % (35.4-49); HEMOGLOBIN 10.1 GM/dL (11.7-16.9); MCHC 32.2 g/dl (32.0-35.9); MEAN CELL VOLUME 80.7 fl (80-96); MEAN PLT VOLUME 9.4 fl (7.5-11.1); PLATELET COUNT 143 10^3/uL (134-434); RBC 3.88 M/mm3 (4.00-5.60); RDW 16.2 % (11.9-15.9)
[2024-06-26 11:44] LABS: BILIRUBIN,TOTAL 0.3 mg/dL (0.2-1); TOT PROT 6.3 g/dl (6.4-8.2)
[2024-06-26 12:42] LABS: SYPHILIS W/ RPR CONF NON-REACTIVE (NONREACTIVE)
[2024-06-26] MEDS ORDERED: INSULIN (NOVOLOG) ASPART 100 UNITS/ML 10ML VIAL ONE (16:32)
[2024-06-27] MEDS ORDERED: INSULIN (NOVOLOG) ASPART 100 UNITS/ML 10ML VIAL ONE ×4 (06:43→16:42)
[2024-06-27] MEDS: GABAPENTIN 100 MG CAPSULE PO SCH (14:17)
[2024-06-27] MEDS: TETRAHYDROZOLINE HCL EYE DROPS OU PRN (16:45)
[2024-06-28] MEDS ORDERED: INSULIN (NOVOLOG) ASPART 100 UNITS/ML 10ML VIAL ONE ×4 (06:26→21:45)
[2024-06-29] MEDS: hydrOXYzine PAMOATE 25 MG CAPSULE (FP) PO PRN (00:44)
[2024-06-29] MEDS ORDERED: INSULIN (NOVOLOG) ASPART 100 UNITS/ML 10ML VIAL ONE ×3 (11:53→21:45)
[2024-06-30 10:31] LABS: INR 0.96 (0.83-1.09); PROTHROMBIN TIME (PATIENT) 11.1 SEC (9.7-13.0)
[2024-06-30] MEDS: LOSARTAN POTASSIUM 50 MG TABLET PO SCH (13:43)
[2024-06-30] MEDS: INSULIN (LEVEMIR) 100 UNITS/ML UNITS SQ SCH (22:48)
[2024-07-01] MEDS: amLODIPine BESYLATE 10 MG TABLET (FP) PO SCH (09:56)
[2024-07-01] MEDS ORDERED: INSULIN (NOVOLOG) ASPART 100 UNITS/ML 10ML VIAL ONE ×2 (16:38→21:14)
[2024-07-02] MEDS ORDERED: INSULIN (NOVOLOG) ASPART 100 UNITS/ML 10ML VIAL ONE ×3 (06:23→16:51)
[2024-07-02] MEDS: INSULIN (NOVOLOG) ASPART 100 UNITS/ML 10ML VIAL SQ ONE (23:12)
[2024-07-03] MEDS: MAG HYDROX/AL HYDROX/SIMETH 30 ML UNIT-DOSE CUP PO PRN (02:20)
[2024-07-03] MEDS: INSULIN (LEVEMIR) 100 UNITS/ML UNITS SQ SCH (06:30)
[2024-07-03] MEDS ORDERED: INSULIN (NOVOLOG) ASPART 100 UNITS/ML 10ML VIAL ONE ×5 (06:30→22:10)
[2024-07-03] MEDS: GABAPENTIN 100 MG CAPSULE PO SCH (13:51)
[2024-07-04] MEDS ORDERED: INSULIN (NOVOLOG) ASPART 100 UNITS/ML 10ML VIAL ONE ×2 (06:30→10:53)
[2024-07-04] MEDS: SUVOREXANT 10 MG TABLET PO PRN (21:40)
[2024-07-04] MEDS: INSULIN (LEVEMIR) 100 UNITS/ML UNITS SQ SCH (21:41)
[2024-07-04] MEDS: INSULIN (NOVOLOG) ASPART 100 UNITS/ML 10ML VIAL SQ ONE (21:42)
[2024-07-05] MEDS ORDERED: INSULIN (NOVOLOG) ASPART 100 UNITS/ML 10ML VIAL ONE ×3 (06:41→11:53)
[2024-07-05] MEDS: INSULIN (LEVEMIR) 100 UNITS/ML UNITS SQ SCH (06:45)
[2024-07-05] MEDS: INSULIN (NOVOLOG) ASPART 100 UNITS/ML 10ML VIAL SQ ONE ×2 (16:59→18:28)
[2024-07-06] MEDS ORDERED: INSULIN (NOVOLOG) ASPART 100 UNITS/ML 10ML VIAL ONE ×3 (06:45→16:45)
[2024-07-07] MEDS ORDERED: INSULIN (NOVOLOG) ASPART 100 UNITS/ML 10ML VIAL ONE ×6 (06:21→21:20)
[2024-07-07] MEDS: MAGNESIUM HYDROX 2400MG/30ML ORAL SUSPENSION 30 ML CUP PO PRN (13:49)
[2024-07-07] MEDS: INSULIN (NOVOLOG) ASPART 100 UNITS/ML 10ML VIAL SQ ONE (22:28)
[2024-07-07] MEDS: SUVOREXANT 10 MG TABLET PO PRN (22:29)
[2024-07-08] MEDS ORDERED: INSULIN (NOVOLOG) ASPART 100 UNITS/ML 10ML VIAL ONE ×4 (06:35→16:48)
[2024-07-08] MEDS: INSULIN (LEVEMIR) 100 UNITS/ML UNITS SQ SCH ×2 (07:05→21:32)
[2024-07-08] MEDS: POLYETHYLENE GLYCOL (HEALTHYLAX) 3350 17 GM PACKET PO PRN (15:53)
[2024-07-09] MEDS ORDERED: INSULIN (NOVOLOG) ASPART 100 UNITS/ML 10ML VIAL ONE (06:29)
[2024-07-09 06:59] VITALS: RESP 18; TEMP 97.5
[2024-07-09 09:05] VITALS: BP 127/83; PULSE 120
== END 2024-07-09 09:15 | disposition home or self-care (01) | DRG 772 ==
LOC: YASAS 10:18 → Y3NR 14:32 → Y3E 06-26 12:42
PROVIDERS: ADMIT Allergy & Immunology; ATTEND Psychiatry & Neurology Pain Medicine
PROC: HZ42ZZZ Group Counseling for Substance Abuse Treatment, Cognitive-Behavioral (ICD-10-PCS; principal; 2024-06-25)
DX: F10.20 Alcohol dependence, uncomplicated (principal); F19.24 Other psychoactive substance dependence with psychoactive substance-induced mood disorder; F41.9 Anxiety disorder, unspecified; G47.00 Insomnia, unspecified; I10 Essential (primary) hypertension; E78.5 Hyperlipidemia, unspecified; K76.0 Fatty (change of) liver, not elsewhere classified; E11.65 Type 2 diabetes mellitus with hyperglycemia; Z79.4 Long term (current) use of insulin; Z86.16 Personal history of COVID-19
CPT/HCPCS: 36415; 80053; 80305; 80307; 81003; 82140; 82652; 82962; 83735; 85027; 85610; 86780; 86803; 87811; 93005; 93010